=== PATIENT | female | born 1975 | race Two or more races ===

== ENCOUNTER 2025-01-13 18:13 | Emergency (ER) | payer OTHER ==
[~2025-01-13] VITALS: Ht 167.6 cm; Wt 79.4 kg
[2025-01-13] MEDS ORDERED: DEPAKOTE ER250 MG PO (19:10)
[2025-01-13] MEDS ORDERED: ATIVAN1 M1 PO (19:10)
[2025-01-13] MEDS ORDERED: ORPHENADRINE CITRATE 30 MG/ML AMPUL IM ONE (20:15)
[2025-01-13] MEDS ORDERED: KETOROLAC TROMETHAMINE 30 MG VIAL IM ONE (20:15)
[2025-01-13] MEDS ORDERED: KETOROLAC TROMETHAMINE 30 MG VIAL ONE (20:24)
[2025-01-13] MEDS ORDERED: ORPHENADRINE CITRATE 30 MG/ML AMPUL ONE (20:25)
== END 2025-01-14 00:12 | disposition home or self-care (01) ==
LOC: ER 18:14
DX: M54.2 Cervicalgia (principal); S30.0XXA Contusion of lower back and pelvis, initial encounter; W18.30XA Fall on same level, unspecified, initial encounter; Y93.9 Activity, unspecified; Y92.22 Religious institution as the place of occurrence of the external cause; Y99.9 Unspecified external cause status; R42 Dizziness and giddiness

== ENCOUNTER 2025-08-12 02:16 | Emergency (ER) | payer OTHER ==
[~2025-08-12] VITALS: Ht 170.2 cm; Wt 90.7 kg
[~2025-08-12 02:16] MED LIST: ATIVAN1 M1 PO; DEPAKOTE ER250 MG PO
[2025-08-12] MEDS ORDERED: TRAMADOL HCL 50 MG TABLET PO ONE (03:30)
[2025-08-12 03:56] LABS: BASO % 0.9 % (0.1-1.2); EOS # 0.34 (0.04-0.54); EOS % 4.3 % (0.7-7.0); LYMPH # 2.24 (1.18-3.74); LYMPH % 28.6 % (19.3-53.1); MEAN PLATELET VOLUME 10.30 fl (9.4-12.4); MONO # 1.26 (0.24-0.82); NEUT # 3.87 (1.56-6.13); NEUT % 49.5 % (34.0-71.1); RED CELL DISTRIBUTION WIDTH 13.3 % (11.6-14.4)
[2025-08-12 04:18] LABS: MONO % 16.1 % (4.7-12.5)
[2025-08-12 04:23] LABS: ALT/SGPT 84.0 U/L (12-78); AST/SGOT 58.0 U/L (15-37); BILIRUBIN TOTAL 0.46 mg/dL (0.3-1.2); BUN CREA RATIO 20.0 (7.0-25.0); CREATININE SERUM 0.99 mg/dL (0.55-1.02); GFR 59.13; GLOBULINA 3.9 G/DL (2.4-3.5); GLUCOSE FASTING 111.0 mg/dL (65-100); OSMOLALITY SERUM 288.0 MOSM/KG (275-295)
[2025-08-12] MEDS ORDERED: NORFLEX100MG PO (11:16)
[2025-08-12] MEDS ORDERED: NAPROXEN500 MG PO (11:16)
== END 2025-08-12 14:43 | disposition home or self-care (01) ==
LOC: ER 02:17
PROVIDERS: General Practice
DX: S19.9XXA Unspecified injury of neck, initial encounter (principal); V49.88XA Car occupant (driver) (passenger) injured in other specified transport accidents, initial encounter; Y93.89 Activity, other specified; Y92.89 Other specified places as the place of occurrence of the external cause; Y99.8 Other external cause status; M79.10 Myalgia, unspecified site; R25.2 Cramp and spasm; R60.0 Localized edema; Z88.9 Allergy status to unspecified drugs, medicaments and biological substances